=== PATIENT | male | born 1935 | race Asian ===

== ENCOUNTER 2022-12-10 11:42 | Emergency (ER) | payer MEDICARE, MEDICAID ==
[~2022-12-10] VITALS: Ht 160 cm; Wt 53.1 kg
[2022-12-10 11:42] VITALS: BP_SYST 112
--- NOTE | 2022-12-10 11:43 | NUR ---
BROUGHT IN BY [facility] AND TRIAGED. AWAITING ER BED AVAILABILITY
--- NOTE | 2022-12-10 11:45 | NUR ---
RECEIVED PT FROM AMANDA TREVINO, PT CHARITY RODRIGUEZ FROM [facility] FOR C/O PT HAS NON-HEALING WOUND TO RIGHT SECOND TOE. PT IS AAOX1. NONVERAL, HX OF DEMENTIA. PT HAS RIGHT SECOND TOE WOUND COVERED WITH CDI DRESSING. 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 PT NONAMBULATORY, MOVES AND REPOSITIONS WITH ASSISTANCE. CONTACT PRECAUTIONS IN PLACE. VSS. SIDERAILS UP X2.
--- NOTE | 2022-12-10 11:46 | NUR ---
DR. MEDEL AT BEDSIDE TO ASSESS PT.
--- NOTE | 2022-12-10 12:12 | NUR ---
BLOOD OBTAINED AND TAKEN TO LAB.
[2022-12-10 12:34] LABS: BASOPHILS # (AUTO) 0.1 K/uL (0.0-0.2); EOSINOPHILS # (AUTO) 0.3 K/uL (0.0-0.4); EOSINOPHILS % (AUTO) 3.1 % (0.0-4.0); HEMATOCRIT 41.9 % (36-54); HEMOGLOBIN 13.9 g/dL (14.0-18.0); LYMPHOCYTES # (AUTO) 2.3 K/uL (1.0-5.5); LYMPHOCYTES % (AUTO) 26.6 % (20.5-51.5); MEAN CORPUSCULAR HEMOGLOBIN 32 pg (27-31); MEAN CORPUSCULAR HGB CONC 33 % (32-36); MEAN CORPUSCULAR VOLUME 95 fL (79.0-98.0); MONOCYTES # (AUTO) 0.9 K/uL (0.0-1.0); MONOCYTES % (AUTO) 10.5 % (1.7-9.3); NEUTROPHILS # (AUTO) 5.2 K/uL (1.8-7.7); NEUTROPHILS % (AUTO) 58.8 % (40.0-70.0); PLATELET COUNT (AUTO) 240 K/uL (130-430); RED CELL DISTRIBUTION WIDTH 15.1 % (9.0-15.0); WHITE BLOOD COUNT (AUTO) 8.8 K/uL (4.8-10.8)
[2022-12-10 12:45] LABS: ANION GAP 10 (5-15); CALCIUM 8.8 mg/dL (8.4-11.0); CHLORIDE 109 mmol/L (98-107); CREATININE 0.96 mg/dL (0.55-1.30); GLUCOSE 182 mg/dL (70-99); UREA NITROGEN, BLOOD 15 mg/dL (8-21)
[2022-12-10 12:49] LABS: ALANINE AMINOTRANSFERASE 25 U/L (12-78); ALBUMIN 2.6 g/dL (3.4-4.8); ASPARTATE AMINOTRANSFERASE 16 U/L (10-37); TOTAL BILIRUBIN 0.5 mg/dL (0.0-1.0)
--- NOTE | 2022-12-10 14:44 | NUR ---
NOTIFIED ED ADMITTING, SANDRA REGARDING DR. MEDEL'S REQUEST FOR ADMISSION/TRANSFER. PER DR. MEDEL, PT IS STABLE FOR TRANSFER. WILL CONTACT [facility] STA[facility] REGARDING THIS MATTER. [facility] [place]
--- NOTE | 2022-12-10 14:49 | NUR ---
BRENDA, ALLIED DIRECTOR OF CULTURE, CALLED BACK TO RECEIVE CLINICAL INFO. REQUESTED FAX OF FACESHEET AND CLINICALS. DR. TORRES FROM [place] WILL BE CALLING BACK. FAX: [phone]
--- NOTE | 2022-12-10 15:09 | NUR ---
REPORTED TO DR. MEDEL PT HR IS AFIB TRENDING BETWEEN 80 AND 130S WITH PVCS AND POSSIBLE BBB. NNOS.
--- NOTE | 2022-12-10 15:13 | NUR ---
DR. TORRES FROM [place] CALLED BACK FOR PEER TO PEER
[2022-12-10] MEDS ORDERED: VANCOMYCIN HCL 1,000 MG in NS 250 ML IV ONE (15:15)
[2022-12-10] MEDS ORDERED: VANCOMYCIN HCL 1000 MG/VIAL IV ONE (15:56)
[2022-12-10] MEDS ORDERED: NACL 0.9% 1,000 ML IV ONE (16:00)
--- NOTE | 2022-12-10 16:07 | NUR ---
VANCOMYCIN 1GM IVPB AND NS 1000ML BOLUS IV INITIATED.
[2022-12-10] MEDS ORDERED: FURO-150 PO (17:36)
[2022-12-10] MEDS ORDERED: FAMO20TA8 PO (17:36)
[2022-12-10] MEDS ORDERED: OMEG1600 PO (17:36)
[2022-12-10] MEDS ORDERED: MULT9LIQ6 PO (17:36)
[2022-12-10] MEDS ORDERED: APIX5TAB4 PO (17:36)
[2022-12-10] MEDS ORDERED: AMIN30LI2 PO (17:36)
[2022-12-10] MEDS ORDERED: POTA-197 PO (17:36)
[2022-12-10] MEDS ORDERED: SENN8.6T19 PO (17:36)
[2022-12-10] MEDS ORDERED: ACET325T PO (17:36)
[2022-12-10] MEDS ORDERED: CHOLECALCIFEROL PO (17:36)
[2022-12-10] MEDS ORDERED: FLEETMO RC (17:36)
[2022-12-10] MEDS ORDERED: ASCO500T20 PO (17:36)
[2022-12-10] MEDS ORDERED: NITSL SL (17:36)
[2022-12-10] MEDS ORDERED: ACID1CAP2 PO (17:36)
[2022-12-10] MEDS ORDERED: TWOCAL HN PO (17:36)
[2022-12-10] MEDS ORDERED: MOM PO (17:36)
--- NOTE | 2022-12-10 17:37 | NUR ---
Medication reconciliation completed with information provided by [facility]. Any prior medication reconciliation on file was reviewed and corrected.
--- NOTE | 2022-12-10 19:33 | NUR ---
PT ENDORSED TO AMANDA AMAYA. ALL QUESTIONS AND CONCERNS ADDRESSED.
--- NOTE | 2022-12-10 21:40 | NUR ---
HUMZA FROM [facility]SFER [facility] CALLED FOR BED PLACEMENT GOING TO B[facility]ER ROOM 205 A REPORT # [phone] DR TORRES ACCEPTING WILL FAX COVID RESULTS TO [phone]
--- NOTE | 2022-12-10 21:54 | NUR ---
COVID SWAB COLLECTED AND SENT TO LAB.
--- NOTE | 2022-12-10 22:35 | NUR ---
REPORT GIVEN TO MERVIN STORY
--- NOTE | 2022-12-11 03:15 | NUR ---
REPORT GIVEN TO CARMEN FUNEZ RN, [facility] 702. PT STABLE FOR TRANSPORT
[2022-12-11 03:34] VITALS: BP_SYST 114
== END 2022-12-11 03:34 ==
LOC: SED 11:42
DX: M86.9 Osteomyelitis, unspecified (principal); I96 Gangrene, not elsewhere classified; L08.9 Local infection of the skin and subcutaneous tissue, unspecified; K21.9 Gastro-esophageal reflux disease without esophagitis; Z79.899 Other long term (current) drug therapy; Z20.822 Contact with and (suspected) exposure to COVID-19
CPT/HCPCS: 99285; 96365; 87426; 80053; 85025; 85651; 86140; 87040; 36415; 73630; 83605; J3370